=== PATIENT | female | born 1950 | race Caucasian/White ===

== ENCOUNTER 2018-04-10 21:11 | Inpatient (IN) ==
--- NOTE | 2018-04-10 21:54 | Emergency Department Note ---
Disposition Clinical Impression: Salicylate poisoning Disposition: Admitted As Inpatient Condition: Good Referrals: NONE,PCP [Primary Care Provider] - Forms: ED Satisfaction Letter General Adult HPI - General Chief complaint: ED Psychiatric Symptoms Stated complaint: hallucinations Time Seen by Provider: 04/10/18 21:15 Source: patient, EMS Limitations: no limitations Nursing Notes Reviewed: Yes Vital Signs Reviewed: Yes - History of Present Illness HPI Narrative: Female patient presenting to emergency department complaining of hallucinations. 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 She states since then she is also noticed that she has been hallucinating. She reports that the carpet changes s hapes. She is also reporting the sheets on her bed changes shapes as well. And she thought there are frias on them however they are solid blue. Patient states that she is also had a weakness in her lower extremity she complains that this is a dizziness feeling but denies any rotary component. She states that it takes her a long time to walk to the bedroom because she is so weak. She has to hold onto the wall. She does report a history of high blood pressure she has not been taking any medication for around 3 months. She denies any fevers or chills. She denies any urinary symptoms or abdominal pain. She denies any nausea or vomiting. She denies any visual disturbance. She does have a history of high blood pressure however she has not been taking any medications for over 3 months. She denies a headache. She denies any chest pain or shortness of breath. She has no urinary symptoms. States he has been urinating and defecating as normal. No burning or blood in either her urine or stool. No melena. Pain Scale: 4 - Related Data Allergies Allergy/AdvReac Type Severity Reaction Status Date / Time No Known Allergies Allergy Verified 12/27/15 05:25 All systems ED: reviewed and negative except as stated. Review of Systems: As Per HPI Past Medical History - Past Medical History Attestation: Yes The following information was validated with the patient. Source: patient Medical history: Reports: hypertension Psychiatric history: Reports: depression - Social History Smoking Status: Current every day smoker Smokeless Tobacco Status: No Alcohol use: Reports: occasionally Drug use: Reports: none Physical Exam - General Limitations: no limitations General appearance: alert, in no apparent distress - Head Head exam: atraumatic, normocephalic, normal inspection - Eye Eye exam: Present: normal appearance, PERRL, EOMI, nystagmus (LATERAL, NO ROTARY COMPONENT) - ENT ENT exam: normal exam, normal oropharynx, mucous membranes moist - Neck Neck exam: Present: normal inspection, full ROM, trachea midline - Chest Chest inspection: Present: normal inspection, symmetric chest wall rise - Respiratory Respiratory exam: Present: normal lung sounds bilaterally. Absent: respiratory distress, accessory muscle use - Cardiovascular Cardiovascular exam: Present: regular rate, normal rhythm, normal heart sounds - Abdominal Exam Abdominal exam: Present: soft, Non-Tender. Absent: tenderness, distention, guarding, rebound, rigidity, organomegaly - Extremities Exam Extremities exam: Present: normal inspection, full ROM, normal capillary refill, pedal edema (MILD PITTING TO THE ANKLES). Absent: tenderness, calf tenderness - Back Exam Back exam: Present: full ROM, CVA tenderness (R) - Neurological Exam Neurological exam: Present: alert, oriented X3 - Psychiatric Psychiatric exam: Present: normal affect, normal mood - Skin Skin exam: Present: warm, dry, intact, normal color. Absent: rash, cyanosis Course Course Narrative: Patient does have hallucinations. She knows person place and time. She denies headache but does have a weakness and dizziness sensation. She denies vertiginous symptoms such as the world spinning. We did get a basic lab workup and urine tox as well as salicylate and acetaminophen secondary to the hallucinations. Her salicylate level came back elevated at 54.5. On reevaluation of the patient she states that she has been taking 1-2 aspirins every 4 hours for the past 3 months for chronic back pain. She states that her tramadol was stopped so she has been using this. We discussed that this was too habitus. She denies any suicidal ideation with this. She denies any homicidal ideation. Patient's CT of her head showed no signs of acute intracranial hemorrhage. She did have some microvascular changes. I did discuss this patient with toxicology. She is on their list of patients currently. They will be calling back. The recommendations are listed below electron consult. We will start the patient on a bicarbonate drip. The recommendation was for a urine pH above 7.5. Dr. Sibley get her has also been notified of this patient he is with nephrology. He is aware and states if he needs to come in for emergent dialysis he would be able to do that. We did also place a consult for them. We will admit patient to the hospital for her salicylate toxicity. She will need aspirin electrolytes urine pH drawn every 2 hours. She will need every 2 hours aspirin until they are is 2 consecutive aspirin levels less than 30. Dr. Maryjo mccoy her wanted us to be aware that her calcium also needs to be watched as this could decreased. We have also ordered 2 g of mag for her prolonged QTC. Patient does have some mild pitting edema to her lower extremities so we did start the patient on 100 mL bolus is of a full liter. I talked this over with toxicology and they agreed with this plan. We will admit patient to hospital at this time. Patient's back pain does appear to be right flank. I was initially concerned for possible pyelonephritis however the patient's UA was negative. There is no midline tenderness. She states she does have chronic neck and back pain. - Consultations Consultation #1: I spoke with toxicology. They are calling us back however they did recommend 2 g of mag for the prolonged QTC as well as IV fluids at 500 currently. They also recommended trans-of bicarbonate 40 mEq of potassium in a liter of D5 water ran at 2-3 mL/kg an hour. They requested aspirin electrolytes and urine pH be checked every 2 hours. The goal is to keep the urine pH above 7.5. They wanted consecutive aspirins until to come back less than 30. Time: 23:11 Consultation #2: I spoke with Dr. Wasserman her with nephrology. He is agreeable with the plan to start the bicarbonate drip. He states that he will be available if the patient gets worse and needs to have emergent dialysis. He also recommended that we monitor the calcium because sometimes that we will decrease with the bicarbonate drip. Time: 23:11 Vital Signs Temperature 98.2 F 04/10/18 21:16 Pulse Rate 104 04/10/18 21:16 Respiratory Rate 17 04/10/18 21:16 Blood Pressure 122/72 04/10/18 21:16 O2 Sat by Pulse Oximetry 97 04/10/18 21:16 Temperature 98.2 F 04/10/18 21:16 Pulse Rate 104 04/10/18 21:16 Respiratory Rate 17 04/10/18 21:16 Blood Pressure 122/72 04/10/18 21:16 O2 Sat by Pulse Oximetry 97 04/10/18 21:16 Oxygen Delivery Oxygen Delivery Room Air Medical Decision Making - Medical Records Medical records reviewed: Yes I reviewed the patient's medical records. - Lab Data Lab results reviewed: Yes I reviewed the patient's lab results. Result diagrams: 04/10/18 21:56 04/10/18 21:56 Lab Results 04/10/18 04/10/18 04/10/18 Range/Units 21:56 21:56 21:59 WBC 7.2 (4.3-11.1) K/mcL RBC 4.47 (3.82-4.97) M/mcL Hgb 15.2 (11.5-15.4) g/dL Hct 44.8 (35.3-44.9) % MCV 100.2 H (83.0-100.0) fL MCH 34.0 H (28.0-33.3) pg MCHC 33.9 (31.6-35.5) g/dL RDW 12.8 (11.5-14.5) % Plt Count 227 (140-400) K/mcL MPV 9.5 (9.4-12.4) fL Immature Gran % 0.3 (0-4) % Seg Neutrophils % 67.6 % Lymphocytes % 24.9 % Monocytes % 4.6 % Eosinophils % 1.2 % Basophils % 1.4 % Neutrophils # 4.9 (1.6-8.9) K/mcL Lymphocytes # 1.8 (0.6-4.6) K/mcL Monocytes # 0.3 (0.0-1.3) K/mcL Eosinophils # 0.1 (0.0-0.6) K/mcL Basophils # 0.1 (0.0-0.2) K/mcL PT (9.4-12.1) Seconds INR VBG pH (7.32-7.42) pH Units VBG pCO2 (41-51) mmHg VBG pO2 (25-50) mmHg VBG HCO3 (21-27) mEq/L Sodium 133 L (136-145) mEq/L Potassium 3.7 (3.5-5.1) mEq/L Chloride 102 (98-107) mEq/L Carbon Dioxide 15 L (23-29) mEq/L BUN 28 H (8-23) mg/dL Creatinine 1.18 (0.60-1.20) mg/dL Est GFR ( Amer) 55 L (> 60) Est GFR (Non-Af Amer) 45 L (> 60) BUN/Creatinine Ratio 24 (6-26) Glucose 121 H (70-105) mg/dL Calculated Osmolality 283 (280-300) Lactic Acid 0.9 (0.5-2.2) mmol/L Calcium 9.7 (8.6-10.3) mg/dL Magnesium 2.1 (1.6-2.6) mg/dL Total Bilirubin 0.2 L (0.3-1.0) mg/dL Direct Bilirubin 0.1 (0.0-0.2) mg/dL Indirect Bilirubin 0.1 (0.0-1.2) mg/dL AST 35 (13-39) Units/L ALT 30 (7-52) Units/L Alkaline Phosphatase 80 (34-104) Units/L Serum Total Protein 7.3 (6.4-8.9) g/dL Albumin 4.6 (3.5-5.7) g/dL Globulin 2.7 (2.4-3.5) g/dL Albumin/Globulin Ratio 1.7 (1.1-2.2) Urine Color (Yellow) Urine Clarity (Clear) Urine pH (5.0-8.0) pH Units Ur Specific [place] (1.010-1.025) Urine Protein (Neg-Trace) mg/dL Urine Glucose (UA) (Normal) mg/dL Urine Ketones (Negative) mg/dL Urine Blood (Negative) Urine Nitrite (Negative) Urine Bilirubin (Negative) Urine Urobilinogen (Normal) mg/dL Ur Leukocyte Esterase (Negative) Urine Microscopic RBC (0-3) per hpf Urine Microscopic WBC (0-3) per hpf Ur Squamous Epith Cells (None-Few) per lpf Urine Bacteria (None-Few) per hpf Hyaline Casts (None-Few) per lpf Salicylates 54.5 H* (15.0-30.0) mg/dL Urine Opiates Screen (Akjexc=889) ng/mL Acetaminophen < 10 L (10-20) mcg/mL Ur Barbiturates Screen (Ljugie=527) ng/mL Ur Phencyclidine Scrn (Cutoff=25) ng/mL Ur Amphetamines Screen (Gssmlr=7903) ng/mL U Benzodiazepines Scrn (Rozxem=664) ng/mL Urine Cocaine Screen (Cutoff= 300) ng/mL U Marijuana (THC) Screen (Cutoff = 50) ng/mL Ur Drug Screen Interp Ethyl Alcohol < 10 (Less than 10) mg/dL 04/10/18 04/10/18 04/10/18 Range/Units 22:30 22:30 22:40 WBC (4.3-11.1) K/mcL RBC (3.82-4.97) M/mcL Hgb (11.5-15.4) g/dL Hct (35.3-44.9) % MCV (83.0-100.0) fL MCH (28.0-33.3) pg MCHC (31.6-35.5) g/dL RDW (11.5-14.5) % Plt Count (140-400) K/mcL MPV (9.4-12.4) fL Immature Gran % (0-4) % Seg Neutrophils % % Lymphocytes % % Monocytes % % Eosinophils % % Basophils % % Neutrophils # (1.6-8.9) K/mcL Lymphocytes # (0.6-4.6) K/mcL Monocytes # (0.0-1.3) K/mcL Eosinophils # (0.0-0.6) K/mcL Basophils # (0.0-0.2) K/mcL PT 13.6 H (9.4-12.1) Seconds INR 1.2 VBG pH (7.32-7.42) pH Units VBG pCO2 (41-51) mmHg VBG pO2 (25-50) mmHg VBG HCO3 (21-27) mEq/L Sodium (136-145) mEq/L Potassium (3.5-5.1) mEq/L Chloride (98-107) mEq/L Carbon Dioxide (23-29) mEq/L BUN (8-23) mg/dL Creatinine (0.60-1.20) mg/dL Est GFR ( Amer) (> 60) Est GFR (Non-Af Amer) (> 60) BUN/Creatinine Ratio (6-26) Glucose (70-105) mg/dL Calculated Osmolality (280-300) Lactic Acid (0.5-2.2) mmol/L Calcium (8.6-10.3) mg/dL Magnesium (1.6-2.6) mg/dL Total Bilirubin (0.3-1.0) mg/dL Direct Bilirubin (0.0-0.2) mg/dL Indirect Bilirubin (0.0-1.2) mg/dL AST (13-39) Units/L ALT (7-52) Units/L Alkaline Phosphatase (34-104) Units/L Serum Total Protein (6.4-8.9) g/dL Albumin (3.5-5.7) g/dL Globulin (2.4-3.5) g/dL Albumin/Globulin Ratio (1.1-2.2) Urine Color Yellow (Yellow) Urine Clarity Clear (Clear) Urine pH 5.0 (5.0-8.0) pH Units Ur Specific [place] 1.027 H (1.010-1.025) Urine Protein Trace (Neg-Trace) mg/dL Urine Glucose (UA) Normal (Normal) mg/dL Urine Ketones 15 H (Negative) mg/dL Urine Blood Negative (Negative) Urine Nitrite Negative (Negative) Urine Bilirubin Small H (Negative) Urine Urobilinogen Normal (Normal) mg/dL Ur Leukocyte Esterase Negative (Negative) Urine Microscopic RBC 0-3 (0-3) per hpf Urine Microscopic WBC 0-3 (0-3) per hpf Ur Squamous Epith Cells Many H (None-Few) per lpf Urine Bacteria None Seen (None-Few) per hpf Hyaline Casts Few (None-Few) per lpf Salicylates (15.0-30.0) mg/dL Urine Opiates Screen Negative (Rwwjhe=857) ng/mL Acetaminophen (10-20) mcg/mL Ur Barbiturates Screen Negative (Dktbzb=715) ng/mL Ur Phencyclidine Scrn Negative (Cutoff=25) ng/mL Ur Amphetamines Screen Negative (Pmvlmu=4702) ng/mL U Benzodiazepines Scrn Negative (Jcltjb=119) ng/mL Urine Cocaine Screen Negative (Cutoff= 300) ng/mL U Marijuana (THC) Screen Negative (Cutoff = 50) ng/mL Ur Drug Screen Interp See Below Ethyl Alcohol (Less than 10) mg/dL 04/10/18 Range/Units 23:06 WBC (4.3-11.1) K/mcL RBC (3.82-4.97) M/mcL Hgb (11.5-15.4) g/dL Hct (35.3-44.9) % MCV (83.0-100.0) fL MCH (28.0-33.3) pg MCHC (31.6-35.5) g/dL RDW (11.5-14.5) % Plt Count (140-400) K/mcL MPV (9.4-12.4) fL Immature Gran % (0-4) % Seg Neutrophils % % Lymphocytes % % Monocytes % % Eosinophils % % Basophils % % Neutrophils # (1.6-8.9) K/mcL Lymphocytes # (0.6-4.6) K/mcL Monocytes # (0.0-1.3) K/mcL Eosinophils # (0.0-0.6) K/mcL Basophils # (0.0-0.2) K/mcL PT (9.4-12.1) Seconds INR VBG pH 7.37 (7.32-7.42) pH Units VBG pCO2 25 L (41-51) mmHg VBG pO2 85 H (25-50) mmHg VBG HCO3 14 L (21-27) mEq/L Sodium (136-145) mEq/L Potassium (3.5-5.1) mEq/L Chloride (98-107) mEq/L Carbon Dioxide (23-29) mEq/L BUN (8-23) mg/dL Creatinine (0.60-1.20) mg/dL Est GFR ( Amer) (> 60) Est GFR (Non-Af Amer) (> 60) BUN/Creatinine Ratio (6-26) Glucose (70-105) mg/dL Calculated Osmolality (280-300) Lactic Acid (0.5-2.2) mmol/L Calcium (8.6-10.3) mg/dL Magnesium (1.6-2.6) mg/dL Total Bilirubin (0.3-1.0) mg/dL Direct Bilirubin (0.0-0.2) mg/dL Indirect Bilirubin (0.0-1.2) mg/dL AST (13-39) Units/L ALT (7-52) Units/L Alkaline Phosphatase (34-104) Units/L Serum Total Protein (6.4-8.9) g/dL Albumin (3.5-5.7) g/dL Globulin (2.4-3.5) g/dL Albumin/Globulin Ratio (1.1-2.2) Urine Color (Yellow) Urine Clarity (Clear) Urine pH (5.0-8.0) pH Units Ur Specific [place] (1.010-1.025) Urine Protein (Neg-Trace) mg/dL Urine Glucose (UA) (Normal) mg/dL Urine Ketones (Negative) mg/dL Urine Blood (Negative) Urine Nitrite (Negative) Urine Bilirubin (Negative) Urine Urobilinogen (Normal) mg/dL Ur Leukocyte Esterase (Negative) Urine Microscopic RBC (0-3) per hpf Urine Microscopic WBC (0-3) per hpf Ur Squamous Epith Cells (None-Few) per lpf Urine Bacteria (None-Few) per hpf Hyaline Casts (None-Few) per lpf Salicylates (15.0-30.0) mg/dL Urine Opiates Screen (Aqeuif=691) ng/mL Acetaminophen (10-20) mcg/mL Ur Barbiturates Screen (Yaipjg=626) ng/mL Ur Phencyclidine Scrn (Cutoff=25) ng/mL Ur Amphetamines Screen (Erunou=7759) ng/mL U Benzodiazepines Scrn (Wnfosa=738) ng/mL Urine Cocaine Screen (Cutoff= 300) ng/mL U Marijuana (THC) Screen (Cutoff = 50) ng/mL Ur Drug Screen Interp Ethyl Alcohol (Less than 10) mg/dL - Radiology Data Radiology results reviewed: Yes I reviewed the patient's radiology results. Head CT 04/10/18 21:51 IMPRESSION: No acute intracranial abnormality. Chronic white matter microangiopathic ischemic changes. D/ / Martin Young MD / Martin Young MD Interpreting Provider: Martin Young MD Chest X-Ray 04/10/18 22:40 IMPRESSION: Stable exam without acute focal process. D/ / Martin Young MD / Martin Young MD Interpreting Provider: Martin Young MD Attestation Statement - Attestation Attestation: I, Robert Rae, examined this patient and my medical decision-making was reviewed with the PLEATER/PA/Advanced Practice Nurse/Resident Physician. I agree with the documented findings, disposition and treatment plan as described except to the extent set forth below. 67-year-old female presents emergency Department with hallucinations and back pain. Patient states she picked up a heavy object yesterday and now has back pain. Patient has been noticing hallucinations in that V4 has been moving. She feels like floor is unsteady. We obtained medical screening labs for hallucinations which showed elevated salicylate level. There is a 54.5. This is been a chronic salicylate ingestion as she has been taking aspirin every 4 hours for the past 3-4 months. We spoke with the [facility] and the lightning rod erector who agreed with the plan for alkalinization of the urine and possible hemodialysis if she worsens her condition. Patient felt comfortable with this plan of action for admission to hospital.
[2018-04-10 22:10] LABS: Basophils # 0.1 K/mcL (0.0-0.2); Basophils % 1.4 %; Eosinophils # 0.1 K/mcL (0.0-0.6); Eosinophils % 1.2 %; Hematocrit 44.8 % (35.3-44.9); Hemoglobin 15.2 g/dL (11.5-15.4); Immature Granulocytes % 0.3 % (0-4); Lymphocytes # 1.8 K/mcL (0.6-4.6); Lymphocytes % 24.9 %; Mean Corpuscular HGB Conc 33.9 g/dL (31.6-35.5); Mean Corpuscular Volume 100.2 fL (83.0-100.0); Mean Platelet Volume 9.5 fL (9.4-12.4); Monocytes # 0.3 K/mcL (0.0-1.3); Monocytes % 4.6 %; Neutrophils # 4.9 K/mcL (1.6-8.9); Platelet Count 227 K/mcL (140-400); Red Blood Count 4.47 M/mcL (3.82-4.97); Red Cell Distribution Width 12.8 % (11.5-14.5); Segmented Neutrophils % 67.6 %
[2018-04-10 22:36] LABS: Acetaminophen < 10 mcg/mL (10-20); BUN/Creatinine Ratio 24 (6-26); Blood Urea Nitrogen 28 mg/dL (8-23); Calcium 9.7 mg/dL (8.6-10.3); Carbon Dioxide 15 mEq/L (23-29); Chloride 102 mEq/L (98-107); Ethanol < 10 mg/dL (Less than 10); Glucose 121 mg/dL (70-105); Osmolality,Calculated 283 (280-300); Potassium 3.7 mEq/L (3.5-5.1); Salicylate 54.5 mg/dL (15.0-30.0); Sodium 133 mEq/L (136-145); eGFR For Non-African Americans 45 (> 60)
[2018-04-10] MEDS ORDERED: 0.9 % Sodium Chloride 500 ML IVC ONE (22:40)
[2018-04-10 22:46] LABS: Bilirubin,Urine Small (Negative); Blood,Urine Negative (Negative); Clarity,Urine Clear (Clear); Color,Urine Yellow (Yellow); Glucose,Urine (UA) Normal (Normal); Ketones,Urine 15 mg/dL (Negative); Leukocyte Esterase,Urine Negative (Negative); Nitrite,Urine Negative (Negative); Protein,Urine Trace mg/dL (Neg-Trace); Specific Gravity,Urine 1.027 (1.010-1.025); Urobilinogen,Urine Normal (Normal)
[2018-04-10 22:48] LABS: Bacteria,Urine None Seen per hpf (None-Few); Hyaline Casts,Urine Few per lpf (None-Few); RBC,Urine 0-3 per hpf (0-3); Squamous Epithelial Cell,Urine Many per lpf (None-Few); WBC,Urine 0-3 per hpf (0-3)
[2018-04-10 22:56] LABS: Amphetamine Screen,Urine Negative ng/mL (Cutoff=1000); Barbiturate Screen,Urine Negative ng/mL (Cutoff=200); Benzodiazepines Screen,Urine Negative ng/mL (Cutoff=200); Cannabinoid Screen,Urine Negative ng/mL (Cutoff = 50); Cocaine Screen,Urine Negative ng/mL (Cutoff= 300); Opiate Screen,Urine Negative ng/mL (Cutoff=300); Phencyclidine Screen,Urine Negative ng/mL (Cutoff=25)
[2018-04-10 23:04] LABS: INR 1.2; Prothrombin Time 13.6 Seconds (9.4-12.1)
[2018-04-10] MEDS ORDERED: Potassium Chloride 40 MEQ, Sodium Bicarbonate 150 MEQ in D5% in Water 1,000 ML IVC ONE (23:07)
[2018-04-10 23:09] LABS: VBG HCO3 14 mEq/L (21-27); VBG PCO2 25 mmHg (41-51); VBG PH 7.37 pH Units (7.32-7.42); VBG PO2 85 mmHg (25-50)
[2018-04-10 23:11] LABS: Alanine Aminotransferase 30 Units/L (7-52); Albumin 4.6 g/dL (3.5-5.7); Albumin/Globulin Ratio 1.7 (1.1-2.2); Alkaline Phosphatase 80 Units/L (34-104); Aspartate Amino Transferase 35 Units/L (13-39); Bilirubin,Direct 0.1 mg/dL (0.0-0.2); Bilirubin,Indirect 0.1 mg/dL (0.0-1.2); Bilirubin,Total 0.2 mg/dL (0.3-1.0); Globulin 2.7 g/dL (2.4-3.5); Magnesium 2.1 mg/dL (1.6-2.6); Total Protein 7.3 g/dL (6.4-8.9)
--- NOTE | 2018-04-11 00:05 | Emergency Department Note ---
Addendum entered and electronically signed by Eladio Arredondo DO 04/14/18 16:59: Addendum entered and electronically signed by Robert Rae DO 04/14/18 16:03: Pt signed out to Dr. Arredondo and Dr. Mensah pending re-evaluation and disposition Original Note: Disposition Clinical Impression: Salicylate poisoning Qualifiers: Encounter type: initial encounter Injury intent: undetermined intent Qualified Code(s): T39.094A - Poisoning by salicylates, undetermined, initial encounter Disposition: Admitted As Inpatient Condition: Good Referrals: NONE,PCP [Primary Care Provider] - Forms: ED Satisfaction Letter Time of Disposition: 00:06 General Adult HPI - General Chief complaint: ED Psychiatric Symptoms Stated complaint: hallucinations Time Seen by Provider: 04/10/18 21:15 Source: patient, EMS Limitations: no limitations - History of Present Illness Pain Scale: 4 - Related Data Allergies Allergy/AdvReac Type Severity Reaction Status Date / Time No Known Allergies Allergy Verified 12/27/15 05:25 Past Medical History - Past Medical History Medical history: Reports: hypertension Psychiatric history: Reports: depression - Social History Smoking Status: Current every day smoker Smokeless Tobacco Status: No Alcohol use: Reports: occasionally Drug use: Reports: none Physical Exam - General Limitations: no limitations General appearance: alert, in no apparent distress Course Vital Signs Temperature 98.2 F 04/10/18 21:16 Pulse Rate 104 04/10/18 21:16 Respiratory Rate 17 04/10/18 21:16 Blood Pressure 122/72 04/10/18 21:16 O2 Sat by Pulse Oximetry 97 04/10/18 21:16 Temperature 98.2 F 04/10/18 21:16 Pulse Rate 93 04/10/18 23:28 Respiratory Rate 20 04/10/18 23:28 Blood Pressure 123/60 04/10/18 23:28 O2 Sat by Pulse Oximetry 99 04/10/18 23:28 Oxygen Delivery Oxygen Delivery Room Air Medical Decision Making - [facility] Narrative Medical decision making narrative: Refer to previous notes for history of present illness, review of systems, physical exam, medical decision-making regarding the care of this patient. This is a signout was given to me for hospital admission. 67-year-old female who has been taken aspirin chronically for lower back pain presents with hallucinations that her visual in nature. Patient alert and oriented to person, place, time. Salicylate level was elevated in the 50s. Nephrology was consulted. Toxicology was consulted as well. Patient admitted to the hospitalist, Dr. Gutierrez. Patient currently receiving urine alkalinization treatment. Pending current labs. PH of the urine, repeat BMP, repeat salicylate level were obtained. Patient not having any acute changes at this time. I have added an ammonia level. This is to be followed up on in patient. Patient's hemodynamics are stable. Patient has no homicidal ideations or suicidal ideations and is not reported them. After looking at previous visits, patient has been in the emergency department for psychiatric evaluation in the past. Would recommend looking into this more while patient is in the hospital. Vital Signs Temperature 98.2 F 04/10/18 21:16 Pulse Rate 104 04/10/18 21:16 Respiratory Rate 17 04/10/18 21:16 Blood Pressure 122/72 04/10/18 21:16 O2 Sat by Pulse Oximetry 97 04/10/18 21:16 Temperature 98.2 F 04/10/18 21:16 Pulse Rate 93 04/10/18 23:28 Respiratory Rate 20 04/10/18 23:28 Blood Pressure 123/60 04/10/18 23:28 O2 Sat by Pulse Oximetry 99 04/10/18 23:28 Oxygen Delivery Oxygen Delivery Room Air - Lab Data Result diagrams: 04/10/18 21:56 04/11/18 00:02 Lab Results 04/10/18 04/10/18 04/10/18 Range/Units 21:56 21:56 21:59 WBC 7.2 (4.3-11.1) K/mcL RBC 4.47 (3.82-4.97) M/mcL Hgb 15.2 (11.5-15.4) g/dL Hct 44.8 (35.3-44.9) % MCV 100.2 H (83.0-100.0) fL MCH 34.0 H (28.0-33.3) pg MCHC 33.9 (31.6-35.5) g/dL RDW 12.8 (11.5-14.5) % Plt Count 227 (140-400) K/mcL MPV 9.5 (9.4-12.4) fL Immature Gran % 0.3 (0-4) % Seg Neutrophils % 67.6 % Lymphocytes % 24.9 % Monocytes % 4.6 % Eosinophils % 1.2 % Basophils % 1.4 % Neutrophils # 4.9 (1.6-8.9) K/mcL Lymphocytes # 1.8 (0.6-4.6) K/mcL Monocytes # 0.3 (0.0-1.3) K/mcL Eosinophils # 0.1 (0.0-0.6) K/mcL Basophils # 0.1 (0.0-0.2) K/mcL PT (9.4-12.1) Seconds INR VBG pH (7.32-7.42) pH Units VBG pCO2 (41-51) mmHg VBG pO2 (25-50) mmHg VBG HCO3 (21-27) mEq/L Sodium 133 L (136-145) mEq/L Potassium 3.7 (3.5-5.1) mEq/L Chloride 102 (98-107) mEq/L Carbon Dioxide 15 L (23-29) mEq/L BUN 28 H (8-23) mg/dL Creatinine 1.18 (0.60-1.20) mg/dL Est GFR ( Amer) 55 L (> 60) Est GFR (Non-Af Amer) 45 L (> 60) BUN/Creatinine Ratio 24 (6-26) Glucose 121 H (70-105) mg/dL POC Glucose (70-99) mg/dL Calculated Osmolality 283 (280-300) Lactic Acid 0.9 (0.5-2.2) mmol/L Calcium 9.7 (8.6-10.3) mg/dL Magnesium 2.1 (1.6-2.6) mg/dL Total Bilirubin 0.2 L (0.3-1.0) mg/dL Direct Bilirubin 0.1 (0.0-0.2) mg/dL Indirect Bilirubin 0.1 (0.0-1.2) mg/dL AST 35 (13-39) Units/L ALT 30 (7-52) Units/L Alkaline Phosphatase 80 (34-104) Units/L Serum Total Protein 7.3 (6.4-8.9) g/dL Albumin 4.6 (3.5-5.7) g/dL Globulin 2.7 (2.4-3.5) g/dL Albumin/Globulin Ratio 1.7 (1.1-2.2) Urine Color (Yellow) Urine Clarity (Clear) Urine pH (5.0-8.0) pH Units Ur Specific [place] (1.010-1.025) Urine Protein (Neg-Trace) mg/dL Urine Glucose (UA) (Normal) mg/dL Urine Ketones (Negative) mg/dL Urine Blood (Negative) Urine Nitrite (Negative) Urine Bilirubin (Negative) Urine Urobilinogen (Normal) mg/dL Ur Leukocyte Esterase (Negative) Urine Microscopic RBC (0-3) per hpf Urine Microscopic WBC (0-3) per hpf Ur Squamous Epith Cells (None-Few) per lpf Urine Bacteria (None-Few) per hpf Hyaline Casts (None-Few) per lpf Salicylates 54.5 H* (15.0-30.0) mg/dL Urine Opiates Screen (Eytlfc=756) ng/mL Acetaminophen < 10 L (10-20) mcg/mL Ur Barbiturates Screen (Zxhsua=447) ng/mL Ur Phencyclidine Scrn (Cutoff=25) ng/mL Ur Amphetamines Screen (Cqcpsd=5405) ng/mL U Benzodiazepines Scrn (Hykrmp=114) ng/mL Urine Cocaine Screen (Cutoff= 300) ng/mL U Marijuana (THC) Screen (Cutoff = 50) ng/mL Ur Drug Screen Interp Ethyl Alcohol < 10 (Less than 10) mg/dL 04/10/18 04/10/18 04/10/18 Range/Units 22:30 22:30 22:40 WBC (4.3-11.1) K/mcL RBC (3.82-4.97) M/mcL Hgb (11.5-15.4) g/dL Hct (35.3-44.9) % MCV (83.0-100.0) fL MCH (28.0-33.3) pg MCHC (31.6-35.5) g/dL RDW (11.5-14.5) % Plt Count (140-400) K/mcL MPV (9.4-12.4) fL Immature Gran % (0-4) % Seg Neutrophils % % Lymphocytes % % Monocytes % % Eosinophils % % Basophils % % Neutrophils # (1.6-8.9) K/mcL Lymphocytes # (0.6-4.6) K/mcL Monocytes # (0.0-1.3) K/mcL Eosinophils # (0.0-0.6) K/mcL Basophils # (0.0-0.2) K/mcL PT 13.6 H (9.4-12.1) Seconds INR 1.2 VBG pH (7.32-7.42) pH Units VBG pCO2 (41-51) mmHg VBG pO2 (25-50) mmHg VBG HCO3 (21-27) mEq/L Sodium (136-145) mEq/L Potassium (3.5-5.1) mEq/L Chloride (98-107) mEq/L Carbon Dioxide (23-29) mEq/L BUN (8-23) mg/dL Creatinine (0.60-1.20) mg/dL Est GFR ( Amer) (> 60) Est GFR (Non-Af Amer) (> 60) BUN/Creatinine Ratio (6-26) Glucose (70-105) mg/dL POC Glucose (70-99) mg/dL Calculated Osmolality (280-300) Lactic Acid (0.5-2.2) mmol/L Calcium (8.6-10.3) mg/dL Magnesium (1.6-2.6) mg/dL Total Bilirubin (0.3-1.0) mg/dL Direct Bilirubin (0.0-0.2) mg/dL Indirect Bilirubin (0.0-1.2) mg/dL AST (13-39) Units/L ALT (7-52) Units/L Alkaline Phosphatase (34-104) Units/L Serum Total Protein (6.4-8.9) g/dL Albumin (3.5-5.7) g/dL Globulin (2.4-3.5) g/dL Albumin/Globulin Ratio (1.1-2.2) Urine Color Yellow (Yellow) Urine Clarity Clear (Clear) Urine pH 5.0 (5.0-8.0) pH Units Ur Specific [place] 1.027 H (1.010-1.025) Urine Protein Trace (Neg-Trace) mg/dL Urine Glucose (UA) Normal (Normal) mg/dL Urine Ketones 15 H (Negative) mg/dL Urine Blood Negative (Negative) Urine Nitrite Negative (Negative) Urine Bilirubin Small H (Negative) Urine Urobilinogen Normal (Normal) mg/dL Ur Leukocyte Esterase Negative (Negative) Urine Microscopic RBC 0-3 (0-3) per hpf Urine Microscopic WBC 0-3 (0-3) per hpf Ur Squamous Epith Cells Many H (None-Few) per lpf Urine Bacteria None Seen (None-Few) per hpf Hyaline Casts Few (None-Few) per lpf Salicylates (15.0-30.0) mg/dL Urine Opiates Screen Negative (Jljoxn=761) ng/mL Acetaminophen (10-20) mcg/mL Ur Barbiturates Screen Negative (Jjyyhn=738) ng/mL Ur Phencyclidine Scrn Negative (Cutoff=25) ng/mL Ur Amphetamines Screen Negative (Hcthza=4520) ng/mL U Benzodiazepines Scrn Negative (Bycqsp=175) ng/mL Urine Cocaine Screen Negative (Cutoff= 300) ng/mL U Marijuana (THC) Screen Negative (Cutoff = 50) ng/mL Ur Drug Screen Interp See Below Ethyl Alcohol (Less than 10) mg/dL 04/10/18 04/10/18 Range/Units 23:06 23:45 WBC (4.3-11.1) K/mcL RBC (3.82-4.97) M/mcL Hgb (11.5-15.4) g/dL Hct (35.3-44.9) % MCV (83.0-100.0) fL MCH (28.0-33.3) pg MCHC (31.6-35.5) g/dL RDW (11.5-14.5) % Plt Count (140-400) K/mcL MPV (9.4-12.4) fL Immature Gran % (0-4) % Seg Neutrophils % % Lymphocytes % % Monocytes % % Eosinophils % % Basophils % % Neutrophils # (1.6-8.9) K/mcL Lymphocytes # (0.6-4.6) K/mcL Monocytes # (0.0-1.3) K/mcL Eosinophils # (0.0-0.6) K/mcL Basophils # (0.0-0.2) K/mcL PT (9.4-12.1) Seconds INR VBG pH 7.37 (7.32-7.42) pH Units VBG pCO2 25 L (41-51) mmHg VBG pO2 85 H (25-50) mmHg VBG HCO3 14 L (21-27) mEq/L Sodium (136-145) mEq/L Potassium (3.5-5.1) mEq/L Chloride (98-107) mEq/L Carbon Dioxide (23-29) mEq/L BUN (8-23) mg/dL Creatinine (0.60-1.20) mg/dL Est GFR ( Amer) (> 60) Est GFR (Non-Af Amer) (> 60) BUN/Creatinine Ratio (6-26) Glucose (70-105) mg/dL POC Glucose 100 H (70-99) mg/dL Calculated Osmolality (280-300) Lactic Acid (0.5-2.2) mmol/L Calcium (8.6-10.3) mg/dL Magnesium (1.6-2.6) mg/dL Total Bilirubin (0.3-1.0) mg/dL Direct Bilirubin (0.0-0.2) mg/dL Indirect Bilirubin (0.0-1.2) mg/dL AST (13-39) Units/L ALT (7-52) Units/L Alkaline Phosphatase (34-104) Units/L Serum Total Protein (6.4-8.9) g/dL Albumin (3.5-5.7) g/dL Globulin (2.4-3.5) g/dL Albumin/Globulin Ratio (1.1-2.2) Urine Color (Yellow) Urine Clarity (Clear) Urine pH (5.0-8.0) pH Units Ur Specific [place] (1.010-1.025) Urine Protein (Neg-Trace) mg/dL Urine Glucose (UA) (Normal) mg/dL Urine Ketones (Negative) mg/dL Urine Blood (Negative) Urine Nitrite (Negative) Urine Bilirubin (Negative) Urine Urobilinogen (Normal) mg/dL Ur Leukocyte Esterase (Negative) Urine Microscopic RBC (0-3) per hpf Urine Microscopic WBC (0-3) per hpf Ur Squamous Epith Cells (None-Few) per lpf Urine Bacteria (None-Few) per hpf Hyaline Casts (None-Few) per lpf Salicylates (15.0-30.0) mg/dL Urine Opiates Screen (Tbtzqr=802) ng/mL Acetaminophen (10-20) mcg/mL Ur Barbiturates Screen (Gggaoa=929) ng/mL Ur Phencyclidine Scrn (Cutoff=25) ng/mL Ur Amphetamines Screen (Kamsim=5188) ng/mL U Benzodiazepines Scrn (Jncigw=854) ng/mL Urine Cocaine Screen (Cutoff= 300) ng/mL U Marijuana (THC) Screen (Cutoff = 50) ng/mL Ur Drug Screen Interp Ethyl Alcohol (Less than 10) mg/dL Attestation Statement - Attestation Attestation: I, Ethan Mensah MD, personally evaluated this patient and discussed their management with the resident physician. I reviewed the resident's note and agree with the documented findings, medical decision making, and plan of care. This patient was signed out at shift change from Dr. Carvalho and Dr. Robert Rae. Patient awaiting final labs before consulted the hospitalist for admission. H&H and had an episode of weakness of her left leg which just started while here in the emergency department and a stroke alert was called. She had already had a head CT which is negative. The symptoms only lasted a few minutes and then totally resolved so the stroke alert was canceled. Patient is alert but obv iously hallucinating and telling me about watching the Lasix and the wallpaper float. On examination patient is a well-developed and nourished elderly female in no acute distress. She is alert. Breath sounds are clear and equal bilaterally. Heart regular rate and rhythm. The hospitalist, Dr. Gutierrez, was consulted and accepted admission of the patient.
--- NOTE | 2018-04-11 00:13 | Internal Med History&Physical ---
<Yaa Hornechristian - Last Filed: 04/11/18 03:46> Internal Medicine - H&P: Meds Allergy/AdvReac Type Severity Reaction Status Date / Time Penicillins Allergy Hives Verified 04/11/18 05:43 All Systems PM: A 10-system review of systems was performed and is negative for pertinent findings except as documented above in the HPI. - Constitutional Vitals: Temp Pulse Resp BP Pulse Ox 98.2 F 93 20 123/60 99 04/10/18 21:16 04/10/18 23:28 04/10/18 23:28 04/10/18 23:28 04/10/18 23:28 Internal Med - H&P Results - Labs CBC & Chem 7: 04/10/18 21:56 04/11/18 00:02 Labs: Short CBC 04/10/18 Range/Units 21:56 WBC 7.2 (4.3-11.1) K/mcL Hgb 15.2 (11.5-15.4) g/dL Hct 44.8 (35.3-44.9) % Plt Count 227 (140-400) K/mcL Neutrophils # 4.9 (1.6-8.9) K/mcL BMP 04/10/18 04/11/18 21:56 00:02 Sodium 133 L 135 L Potassium 3.7 3.7 Chloride 102 107 Carbon Dioxide 15 L 17 L BUN 28 H 27 H Creatinine 1.18 1.08 Glucose 121 H 91 Calcium 9.7 8.6 Liver Function 04/10/18 Range/Units 21:56 Total Bilirubin 0.2 L (0.3-1.0) mg/dL Direct Bilirubin 0.1 (0.0-0.2) mg/dL AST 35 (13-39) Units/L ALT 30 (7-52) Units/L Alkaline Phosphatase 80 (34-104) Units/L Albumin 4.6 (3.5-5.7) g/dL Urine 04/10/18 Range/Units 22:30 Urine Color Yellow (Yellow) Urine Clarity Clear (Clear) Urine pH 5.0 (5.0-8.0) pH Units Ur Specific [place] 1.027 H (1.010-1.025) Urine Protein Trace (Neg-Trace) mg/dL Urine Glucose (UA) Normal (Normal) mg/dL - ABG Interpretation ABG results: 04/10/18 23:06 VBG pH 7.37 VBG pCO2 25 L VBG pO2 85 H VBG HCO3 14 L - Impressions ITS Impressions Head CT 04/10/18 21:51 IMPRESSION: No acute intracranial abnormality. Chronic white matter microangiopathic ischemic changes. D/ / Martin Young MD / Martin Young MD Interpreting Provider: Martin Young MD Chest X-Ray 04/10/18 22:40 IMPRESSION: Stable exam without acute focal process. D/ / Martin Young MD / Martin Young MD Interpreting Provider: Martin Young MD - Assessment and plan (1) Salicylate poisoning Current Visit: Yes Status: Acute Qualifiers: Encounter type: initial encounter Injury intent: undetermined intent Qualified Code(s): T39.094A - Poisoning by salicylates, undetermined, initial encounter (2) DVT prophylaxis Current Visit: Yes Status: Acute - Time Spent With Patient Total time spent is greater than 50% in coordination of care (as documented) at patient's floor/unit and/or counseling patient: - Attending Attestation Nieves Liu is a 67 year old woman with a history of hypertension and depression who comes in with the complaint of feeling unwell and having visual hallucinations. Her story was somewhat conflicting to me with flight of ideas and wandering off in tangents so the bulk of info is obtained from chart review. She admitted to taking aspirin daily and was found to have a salicylate level of 54.5. She has been started on bicarbonate infusion as recommended by toxicology and nephrology. Rest of her labs are grossly unremarkable. PMHx: As above. SHx: Denies illicit drug use. FHx: Reviewed and found to be noncontributory. Review of systems: All systems reviewed and negative except as listed above in the HPI. Physical exam remarkable for well-developed white female, right-sided deviation of her body, moist mucous membranes with notable conjunctivae pallor, supple neck with no lymphadenopathy, chest clear to auscultation bilaterally with no wheezes, rales or rhonchi, normal S1-S, abdomen non-distended, soft and not tender to palpation, left leg appears slightly larger than the right and both legs appear to have changes of venous stasis bilaterally, no focal deficits and awake/oriented 3, affect appropriate. Labs and CT scan reviewed as noted. We will admit as inpatient for symptomatic salicylate toxicity. We will continue bicarbonate drip and monitor electrolytes. We will need to keep her potassium level around 4 and equally ensure her glucose stays up. Check urine pH and electrolytes every 2 hours as well as salicylate level. Goal urine pH is 7.5-8. We shall consult nephrology for follow-up care in the morning. She may also benefit from psychiatric evaluation given her history. DVT prophylaxis. Patient seen and examined by me on 04/11/18. MELANIE DAVIS. <Mikala Mdeina N - Last Filed: 04/11/18 09:37> Date of Encounter: 04/11/18 Time of Encounter: 00:13 Internal Medicine - H&P: HPI Chief complaint: Hallucinations Admitted From: Home History of present illness: Ms. Liu is a 67 year old female with a history of hypertension, migraines, depression, and vertebral artery insufficiency. She presented to the ED complaining of visual hallucinations, describing them as "care home between the X-files and a [employer] skit". She states that she "still feels like I'm kind of like me, but not anymore". She is unable to articulate when her symptoms began. She reports worsening stiffness and weakness of the extremities, for which she has been taking aspirin. She reports pain in her neck and lumbar spine with sciatic in her right lower extremity. Further elaboration of HPI was unobtainable secondary to flight of ideas and tangential thinking. Patient was seen and evaluated at the bedside. At this time she denies any acute complaints or concerns and repeatedly requests food. Nursing staff denies any acute concerns at this time. Past Med Surg Social Fam HX - Past Medical History Medical history: hypertension Psychiatric history: depression - Past Surgical History Additional surgical history: neck et back sx. left eye lens - Social History Smoking Status: Current every day smoker Smokeless Tobacco Status: No Alcohol use: occasionally Drug use: none All Systems PM: A 10-system review of systems was performed and is negative for pertinent findings except as documented above in the HPI. - Constitutional Vitals: Temp Pulse Resp BP Pulse Ox 98.2 F 93 20 123/60 99 04/10/18 21:16 04/10/18 23:28 04/10/18 23:28 04/10/18 23:28 04/10/18 23:28 Exam: GENERAL: Pleasant, ill-appearing female and no acute distress. She is c ooperative with exam. Thought process is intermittently illogical. Patient appears to lose track of train of thought at times. HEENT: Atraumatic and normocephalic. CARDIOVASCULAR: Regular rate and rhythm. S1 and S2 present. No murmurs, gallops, or rubs. RESPIRATORY: CTA bilaterally. No accessory muscle use or tachypnea noted. GASTROINTESTINAL: Active bowel sounds x 4 quadrants. Abdomen is soft, nontender, and nondistended. EXTREMITIES: No clubbing, cyanosis, or edema. Internal Med - H&P Results - Labs CBC & Chem 7: 04/10/18 21:56 04/11/18 08:07 Labs: Short CBC 04/10/18 Range/Units 21:56 WBC 7.2 (4.3-11.1) K/mcL Hgb 15.2 (11.5-15.4) g/dL Hct 44.8 (35.3-44.9) % Plt Count 227 (140-400) K/mcL Neutrophils # 4.9 (1.6-8.9) K/mcL BMP 04/10/18 21:56 Sodium 133 L Potassium 3.7 Chloride 102 Carbon Dioxide 15 L BUN 28 H Creatinine 1.18 Glucose 121 H Calcium 9.7 Liver Function 04/10/18 Range/Units 21:56 Total Bilirubin 0.2 L (0.3-1.0) mg/dL Direct Bilirubin 0.1 (0.0-0.2) mg/dL AST 35 (13-39) Units/L ALT 30 (7-52) Units/L Alkaline Phosphatase 80 (34-104) Units/L Albumin 4.6 (3.5-5.7) g/dL Urine 04/10/18 Range/Units 22:30 Urine Color Yellow (Yellow) Urine Clarity Clear (Clear) Urine pH 5.0 (5.0-8.0) pH Units Ur Specific [place] 1.027 H (1.010-1.025) Urine Protein Trace (Neg-Trace) mg/dL Urine Glucose (UA) Normal (Normal) mg/dL - ABG Interpretation ABG results: 04/10/18 23:06 VBG pH 7.37 VBG pCO2 25 L VBG pO2 85 H VBG HCO3 14 L - Impressions ITS Impressions Head CT 04/10/18 21:51 IMPRESSION: No acute intracranial abnormality. Chronic white matter microangiopathic ischemic changes. D/ / Martin Young MD / Martin Young MD Interpreting Provider: Martin Young MD Chest X-Ray 04/10/18 22:40 IMPRESSION: Stable exam without acute focal process. D/ / Martin Young MD / Martin Young MD Interpreting Provider: Martin Young MD - Assessment and plan (1) Salicylate poisoning Current Visit: Yes Status: Acute Assessment and plan: Per ED documentation, patient has reportedly been taking aspirin as frequently as every 4 hours for back pain/stiffness. Initial salicylate level was found to be 54.5. EKG demonstrated QTc prolongation, for which patient was given 2g magnesium. Repeat EKG demonstrated persistent QTc prolongation, but no acute changes. - Bicarbonate gtt to alkalinize urine with goal urine pH >7.5 - Serial laboratory studies Q2H - BMP, urine pH, salicylate level - Nephrology consult placed by ED, with evaluation pending - Serial vital signs with watch on respiratory status - Serum osmolality pending - Maintain adequate serum glucose and potassium levels Qualifiers: Qualified Code(s): T39.094A - Poisoning by salicylates, undetermined, initial encounter (2) Altered mental status Current Visit: Yes Status: Acute Assessment and plan: Patient presented with visual hallucinations that have been present for an indeterminate amount of time. On evaluation, patient is tangential and frequently loses her train of thought and/or answers questions that were not asked. Unclear if this is fully due to salicylate toxicity or if there is an underlying chronic mental status change. She does report some depression and expresses interest in seeing a psychiatrist and/or counselor for help. - Treatment and expectant management of salicylate toxicity - Psychiatry evaluation after resolution of acute toxicity - Patient would likely benefit from outpatient counseling (3) DVT prophylaxis Current Visit: Yes Status: Acute Assessment and plan: - Heparin 5000units Q8H - Time Spent With Patient Total time spent is greater than 50% in coordination of care (as documented) at patient's floor/unit and/or counseling patient:
[2018-04-11 00:30] LABS: BUN/Creatinine Ratio 25 (6-26); Blood Urea Nitrogen 27 mg/dL (8-23); Calcium 8.6 mg/dL (8.6-10.3); Carbon Dioxide 17 mEq/L (23-29); Chloride 107 mEq/L (98-107); Glucose 91 mg/dL (70-105); Osmolality,Calculated 285 (280-300); Potassium 3.7 mEq/L (3.5-5.1); Salicylate 43.9 mg/dL (15.0-30.0); Sodium 135 mEq/L (136-145); eGFR For Non-African Americans 50 (> 60)
[2018-04-11] MEDS ORDERED: Nicotine 14 MG PATCH.TD24 TD SCH (03:15)
[2018-04-11 04:16] LABS: ABG Base Excess -7 mEq/L (-2 to 3); ABG HCO3 15 mEq/L (21-27); ABG Oxygen Saturation 97 % (95-98); ABG PCO2 21 mmHg (35-45); ABG PH 7.47 pH Units (7.32-7.45); ABG PO2 84 mmHg (85-104); ABG TCO2 16 mEq/L (20-26)
[2018-04-11 04:37] LABS: BUN/Creatinine Ratio 24 (6-26); Blood Urea Nitrogen 23 mg/dL (8-23); Calcium 8.6 mg/dL (8.6-10.3); Carbon Dioxide 14 mEq/L (23-29); Chloride 109 mEq/L (98-107); Glucose 106 mg/dL (70-105); Osmolality,Calculated 286 (280-300); Potassium 3.6 mEq/L (3.5-5.1); Salicylate 42.5 mg/dL (15.0-30.0); Sodium 136 mEq/L (136-145); eGFR For Non-African Americans 58 (> 60)
[2018-04-11 05:28] LABS: BUN/Creatinine Ratio 26 (6-26); Blood Urea Nitrogen 24 mg/dL (8-23); Calcium 8.6 mg/dL (8.6-10.3); Carbon Dioxide 20 mEq/L (23-29); Chloride 106 mEq/L (98-107); Glucose 100 mg/dL (70-105); Osmolality,Calculated 288 (280-300); Potassium 3.4 mEq/L (3.5-5.1); Salicylate 41.7 mg/dL (15.0-30.0); Sodium 137 mEq/L (136-145); eGFR For Non-African Americans > 60 (> 60)
[2018-04-11] MEDS: *HR* Heparin 5,000 UNIT/ML VIAL SQ SCH ×3 (05:50→20:55)
[2018-04-11 06:47] LABS: BUN/Creatinine Ratio 25 (6-26); Blood Urea Nitrogen 23 mg/dL (8-23); Calcium 8.5 mg/dL (8.6-10.3); Carbon Dioxide 20 mEq/L (23-29); Chloride 109 mEq/L (98-107); Glucose 159 mg/dL (70-105); Osmolality,Calculated 293 (280-300); Potassium 3.4 mEq/L (3.5-5.1); Salicylate 39.3 mg/dL (15.0-30.0); Sodium 138 mEq/L (136-145); eGFR For Non-African Americans > 60 (> 60)
[2018-04-11 08:44] LABS: BUN/Creatinine Ratio 25 (6-26); Blood Urea Nitrogen 25 mg/dL (8-23); Calcium 8.8 mg/dL (8.6-10.3); Carbon Dioxide 25 mEq/L (23-29); Chloride 107 mEq/L (98-107); Glucose 88 mg/dL (70-105); Osmolality,Calculated 292 (280-300); Potassium 3.7 mEq/L (3.5-5.1); Salicylate 37.9 mg/dL (15.0-30.0); Sodium 139 mEq/L (136-145); eGFR For Non-African Americans 55 (> 60)
[2018-04-11] MEDS: Potassium Chloride Elixir 20 MEQ/15 ML UDC PO SCH ×2 (08:57→20:55)
--- NOTE | 2018-04-11 09:21 | Internal Med Progress Note ---
<No Newby - Last Filed: 04/11/18 14:52> Hospitalist Progress Note - Encounter Date of Encounter: 04/11/18 Time of Encounter: 09:14 - Subjective Interval History: 67F with PMH tobacco abuse presenting for visual hallucinations and "stiffness" admitted with high salicylate levels, metabolic acidosis. Measured Osm 287, Calculated Osm 283, Osm Gap at admit 4 - Normal Osm gap. BUN 28 yesterday, 25 this am. Salicylate Q2 checks with Urine pH >7.5 Q2 checks. Nephro on board, bicarb drip, check calcium as this can decrease during treatment. Ca stable today 8.6-8.7 Q2 checks. Poison control recommending dialysis due to AMS and hallucinations. Pt complaining of seeing "little bugs" in her room on exam. Will address need for pain management, PT/OT, seasonal allergies once salicylate level normal and metabolic alkalosis resolved. - Exam Vitals: Temp Pulse Resp BP Pulse Ox 97.9 F 79 16 105/62 99 04/11/18 07:20 04/11/18 07:20 04/11/18 07:20 04/11/18 07:20 04/11/18 07:20 Exam: General:. Kyphotic posture, seems relatively at ease Head: atraumatic, normocephalic. ENT: No conjunctival injection, no scleral icterus. PERRLA. EOMI. Oropharynx non- erythematous. mucous membranes moist. Neuro: No focal deficits, no speech deficit, no facial droop. Pulm: Lungs CTAB A/P. No wheezes, rales, ronchi. Cardio: RRR no m/r/g. Chest not tender to palpation. Abd: Soft, non-distended. Normoactive bowel sounds. Non-tender to palpation. No guarding. Non rigid. Skin: warm, dry, intact. No rashes. Psych: Cooperative with exam. Complaining of bugs in the room, somewhat pressured speech, easily distractable but can be redirected. 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 See salicylate toxicity for plan. (3) Hypertension Current Visit: Yes Status: Resolved Assessment and Plan: Vitals have been stable - 126/65 at 11:55, 105/62 at 0720 today. (4) Metabolic acidosis due to salicylate Current Visit: Yes Status: Acute Assessment and Plan: -Bicarb drip - dialysis - nephrology on board -continue to monitor (5) DVT prophylaxis Current Visit: Yes Status: Acute Assessment and Plan: heparin 5000 u Q8 DVT Prophylaxis: heparin 5000u Q8 - Time Spent with Patient Total time spent is greater than 50% in coordination of care (as documented) at patient's floor/unit and/or counseling patient: less than 15 minutes Plan of Care Discussed with: patient Internal Medicine: Result - Labs CBC & Chem 7: 04/10/18 21:56 04/11/18 12:11 Labs: Short CBC 04/10/18 Range/Units 21:56 WBC 7.2 (4.3-11.1) K/mcL Hgb 15.2 (11.5-15.4) g/dL Hct 44.8 (35.3-44.9) % Plt Count 227 (140-400) K/mcL Neutrophils # 4.9 (1.6-8.9) K/mcL BMP 04/10/18 04/11/18 04/11/18 21:56 00:02 03:32 Sodium 133 L 135 L 136 Potassium 3.7 3.7 3.6 Chloride 102 107 109 H Carbon Dioxide 15 L 17 L 14 L BUN 28 H 27 H 23 Creatinine 1.18 1.08 0.96 Glucose 121 H 91 106 H Calcium 9.7 8.6 8.6 04/11/18 04/11/18 04/11/18 04:44 06:03 08:07 Sodium 137 138 139 Potassium 3.4 L 3.4 L 3.7 Chloride 106 109 H 107 Carbon Dioxide 20 L 20 L 25 BUN 24 H 23 25 H Creatinine 0.92 0.91 1.00 Glucose 100 159 H 88 Calcium 8.6 8.5 L 8.8 Liver Function 04/10/18 Range/Units 21:56 Total Bilirubin 0.2 L (0.3-1.0) mg/dL Direct Bilirubin 0.1 (0.0-0.2) mg/dL AST 35 (13-39) Units/L ALT 30 (7-52) Units/L Alkaline Phosphatase 80 (34-104) Units/L Albumin 4.6 (3.5-5.7) g/dL Urine 04/10/18 Range/Units 22:30 Urine Color Yellow (Yellow) Urine Clarity Clear (Clear) Urine pH 5.0 (5.0-8.0) pH Units Ur Specific [place] 1.027 H (1.010-1.025) Urine Protein Trace (Neg-Trace) mg/dL Urine Glucose (UA) Normal (Normal) mg/dL - ABG Interpretation ABG results: ABG ABG pH 7.47 pH Units (7.32-7.45) H 04/11/18 04:11 ABG pCO2 21 mmHg (35-45) L 04/11/18 04:11 ABG pO2 84 mmHg (85-104) L 04/11/18 04:11 ABG O2 Saturation 97 % (95-98) 04/11/18 04:11 PT/INR, D-dimer PT 13.6 Seconds (9.4-12.1) H 04/10/18 22:40 - Impressions Impressions Head CT 04/10/18 21:51 IMPRESSION: No acute intracranial abnormality. Chronic white matter microangiopathic ischemic changes. D/ / Martin Young MD / Martin Young MD Interpreting Provider: Martin Young MD Chest X-Ray 04/10/18 22:40 IMPRESSION: Stable exam without acute focal process. D/ / Martin Young MD / Martin Young MD Interpreting Provider: Martin Young MD Consult Discharge Plan - Plan Referrals: Soledad Carbajal DO [Resident] - 04/13/18 3:00 pm (Residency clinic. Please arrive thirty min early to appointment. Please bring insurance card, ID, and home medications. ) <Hitesh Del Valle - Last Filed: 04/11/18 18:13> Hospitalist Progress Note - Exam Vitals: Temp Pulse Resp BP Pulse Ox 97.7 F 84 16 126/65 97 04/11/18 11:55 04/11/18 11:55 04/11/18 11:55 04/11/18 11:55 04/11/18 11:55 - Assessment and Plan (1) Salicylate poisoning Current Visit: Yes Status: Acute (2) DVT prophylaxis Current Visit: Yes Status: Acute (3) Altered mental status Current Visit: Yes Status: Acute - Time Spent with Patient Total time spent is greater than 50% in coordination of care (as documented) at patient's floor/unit and/or counseling patient: Internal Medicine: Result - Labs CBC & Chem 7: 04/10/18 21:56 04/11/18 12:11 Labs: Short CBC 04/10/18 Range/Units 21:56 WBC 7.2 (4.3-11.1) K/mcL Hgb 15.2 (11.5-15.4) g/dL Hct 44.8 (35.3-44.9) % Plt Count 227 (140-400) K/mcL Neutrophils # 4.9 (1.6-8.9) K/mcL BMP 04/10/18 04/11/18 04/11/18 21:56 00:02 03:32 Sodium 133 L 135 L 136 Potassium 3.7 3.7 3.6 Chloride 102 107 109 H Carbon Dioxide 15 L 17 L 14 L BUN 28 H 27 H 23 Creatinine 1.18 1.08 0.96 Glucose 121 H 91 106 H Calcium 9.7 8.6 8.6 04/11/18 04/11/18 04/11/18 04:44 06:03 08:07 Sodium 137 138 139 Potassium 3.4 L 3.4 L 3.7 Chloride 106 109 H 107 Carbon Dioxide 20 L 20 L 25 BUN 24 H 23 25 H Creatinine 0.92 0.91 1.00 Glucose 100 159 H 88 Calcium 8.6 8.5 L 8.8 04/11/18 04/11/18 09:41 12:11 Sodium 140 140 Potassium 3.6 4.2 Chloride 105 109 H Carbon Dioxide 24 22 L BUN 26 H 29 H Creatinine 1.01 0.97 Glucose 100 99 Calcium 8.8 8.7 Liver Function 04/10/18 Range/Units 21:56 Total Bilirubin 0.2 L (0.3-1.0) mg/dL Direct Bilirubin 0.1 (0.0-0.2) mg/dL AST 35 (13-39) Units/L ALT 30 (7-52) Units/L Alkaline Phosphatase 80 (34-104) Units/L Albumin 4.6 (3.5-5.7) g/dL Urine 04/10/18 Range/Units 22:30 Urine Color Yellow (Yellow) Urine Clarity Clear (Clear) Urine pH 5.0 (5.0-8.0) pH Units Ur Specific [place] 1.027 H (1.010-1.025) Urine Protein Trace (Neg-Trace) mg/dL Urine Glucose (UA) Normal (Normal) mg/dL - ABG Interpretation ABG results: ABG ABG pH 7.47 pH Units (7.32-7.45) H 04/11/18 04:11 ABG pCO2 21 mmHg (35-45) L 04/11/18 04:11 ABG pO2 84 mmHg (85-104) L 04/11/18 04:11 ABG O2 Saturation 97 % (95-98) 04/11/18 04:11 PT/INR, D-dimer PT 13.6 Seconds (9.4-12.1) H 04/10/18 22:40 - Impressions Impressions Head CT 04/10/18 21:51 IMPRESSION: No acute intracranial abnormality. Chronic white matter microangiopathic ischemic changes. D/ / Martin Young MD / Martin Young MD Interpreting Provider: Martin Young MD Chest X-Ray 04/10/18 22:40 IMPRESSION: Stable exam without acute focal process. D/ / Martin Young MD / Martin Young MD Interpreting Provider: Martin Young MD Guidance Ultrasound 04/11/18 00:00 IMPRESSION: 1. Right internal jugular vein temporary dialysis catheter placement as discussed above. D/ / Jamey Ferro MD / Jamey Ferro MD Interpreting Provider: Jamey Ferro MD Insertion Non-Tunneled Catheter 04/11/18 00:00 IMPRESSION: 1. Right internal jugular vein temporary dialysis catheter placement as discussed above. D/ / Jamey Ferro MD / Jamey Ferro MD Interpreting Provider: Jamey Ferro MD - Attending Attestation I examined this patient and my medical decision-making was reviewed with the Resident Physician on 04/11/18. I agree with the documented findings, disposition and treatment plan as described except to the extent set forth below. Ms Liu was admitted earlier today for salicylate poisoning. She has been on bicarbonate drip and will be seen by nephrology for dialysis. Exam alert Comfortable Mucus membranes dry Heart not tachy Agree with assessment and plan as above and in H&P <No Newby - Last Filed: 04/11/18 14:52> (1) Salicylate poisoning Qualifiers: Encounter type: initial encounter Injury intent: accidental or unintentional Qualified Code(s): T39.091A - Poisoning by salicylates, accidental (unintentional), initial encounter (2) Altered mental status Qualifiers: Altered mental status type: unspecified Qualified Code(s): R41.82 - Altered mental status, unspecified <Hitesh Del Valle - Last Filed: 04/11/18 18:13> (1) Salicylate poisoning Qualifiers: Encounter type: initial encounter Injury intent: accidental or unintentional Qualified Code(s): T39.091A - Poisoning by salicylates, accidental (unintentional), initial encounter (3) Altered mental status Qualifiers: Altered mental status type: unspecified Qualified Code(s): R41.82 - Altered mental status, unspecified
--- NOTE | 2018-04-11 10:07 | Nephrology Consult Note ---
Date of Encounter: 04/11/18 Time of Encounter: 10:07 Assessment and Plan (1) Salicylate poisoning Current Visit: Yes Status: Acute Patient presents acutely for salicylate poisoning with neurologic side effects such as visual hallucinations, weakness, tinnitis, disequilibrium, and ataxia. Salicylate level 54.5 at admission. She reported taking 1 to 2 tablets of aspirin 4-5 times a day for the past 4 weeks due to joint stiffness. Poison control was contacted by the ED. She received IV fluids and sodium bicarb in the ED. -Salicylate level 34.8 improved -creatinine WNL -urinalysis is unremarkable -patient does have tangential conversations, however she is cooperative with answering questions and his mentating appropriately Plan: -poison control recommended that despite the improvement in the salicylate level they highly recommend the patient undergo hemodialysis. This was discussed with the patient and she is agreeable. Plan to take patient for hemodialysis today after interventional radiology places temporary hemodialysis catheter. -Recommend monitoring salicylate level Qualifiers: Encounter type: initial encounter Injury intent: accidental or unintentional Qualified Code(s): T39.091A - Poisoning by salicylates, accidental (unintentional), initial encounter (2) Altered mental status Current Visit: Yes Status: Acute Patient presented with altered mental status described as visual hallucinations only. Etiology likely secondary to salicylate toxicity. -see management as above Qualifiers: Altered mental status type: unspecified Qualified Code(s): R41.82 - Altered mental status, unspecified (3) Metabolic acidosis due to salicylate Current Visit: Yes Status: Acute Patient has a metabolic acidosis due to salicylate poisoning. Anion gap 16 -see management as above History of Present Illness - Reason for Consult Consult date: 04/11/18 (Salicylate toxicity) Requesting physician: Cheryl Carvalho - Chief Complaint Hallucinations - History of Present Illness Ms. Liu is a 67 year old female with a history of hypertension, migraines, depression, and vertebral artery insufficiency who presented to [facility] complaining of hallucinations. Nephrology was consulted due to salicylate toxicity. Upon examination the patient she reported that she been taking 2 tablets of aspirin 4 to 5 times a day for 4 weeks due to joint stiffness. She believes that her hallucinations have been going on for a couple days but she is unsure. She describes them as visual hallucinations. She denies auditory hallucinations. She decided to go to the hospital when she realized that her hallucinations were not real and that she needed to get help. She admits to increasing weakness, difficulty walking due to which she describes as disequilibrium, ringing in ears. She denies any fever, chills, headache, chest pain, shortness of breath, abdominal pain, nausea, vomiting, melena, he matochezia, difficulty urinating. She is a current smoker, drinks one bottle of tequila per month, and denies drug use. Past Med Surg Social Fam HX - Past Medical History Attestation: Yes The following information was validated with the patient. Source: patient Medical history: hypertension Psychiatric history: depression - Past Surgical History Surgical History: other Additional surgical history: neck et back sx. left eye lens - Social History Smoking Status: Current every day smoker Packs per day: 1/2 Smokeless Tobacco Status: No Alcohol use: occasionally Drug use: none - Family History Mother Hx Family Cardiac Disorders: Yes (DE) Hx Family Respiratory Disorders: No Hx Family Cancer: No Hx Family GI Disorders: No Hx Family Genitourinary Disorders: No Hx Family Endocrine Disorder: No Hx Family Musculoskeletal Disorders: No Hx Family Neuromuscular Disorders: No Hx Family Neurologic Disorders: No Hx Family HEENT Disorders: No Hx Family Autoimmune Disorders: No Hx Family Reproductive Disorders: No Hx Family Psychosocial Disorders: No Hx Family Medical Disorders: No Father Hx Family Neurologic Disorders: Yes (Parkinsons) Medications and Allergies DiphenhydraMINE [Benadryl] 25 mg PO TID PRN 04/11/18 [History] Allergy/AdvReac Type Severity Reaction Status Date / Time Penicillins Allergy Hives Verified 04/11/18 05:43 Review of Systems Constitutional: weakness, no anorexia, no chills, no fatigue, no headache(s) Ears: bilateral: tinnitus Nose, mouth and throat: disequilibrium, no abnormal hearing, no headache(s) Cardiovascular: no chest pain, no edema, no palpitations Respiratory: no cough, no dyspnea, no wheezing Gastrointestinal: no abdominal pain, no hematochezia, no melena, no nausea, no vomiting Genitourinary Female: no difficulty urinating, no dysuria Musculoskeletal: arthralgias Integumentary: no erythema, no pruritus, no rash Neurological: abnormal gait, disequilibrium, lack of coordination, weakness, other visual disturbances (Hallucinations), no loss of vision, no syncope Psychiatric: hallucinations, visual hallucinations, no auditory hallucinations Hematologic/Lymphatic: no easy bleeding Exam - Vital Signs Vital signs: Initial Vital Signs Temp Pulse Resp BP Pulse Ox 98.2 F 104 17 122/72 97 04/10/18 21:16 04/10/18 21:16 04/10/18 21:16 04/10/18 21:16 04/10/18 21:16 Vital Signs - Last 8 Hours Temp Pulse Resp BP Pulse Ox 04/11/18 07:20 97.9 F 79 16 105/62 99 04/11/18 03:47 97.7 F 81 16 125/60 100 Intake and Output 04/10/18 04/11/18 04/11/18 23:59 07:59 15:59 Intake Total 500 / 500 90 / 90 Output Total 250 / 250 Balance 500 / 500 -250 / -250 90 / 90 Intake: IV Fluids 500 / 500 0.9 % Sodium Chloride 500 ML @ 500 / 500 999 mls/hr IVC .Q31M ONE Rx#: [id number] Oral 90 / 90 Output: Urine 250 / 250 Other: Meal Breakfast Percent of Meal Consumed 70% Weight 56.608 kg 57 kg Blood Glucose* 100 Patient Weight 04/11/18 23:59 Weight 57 kg - General Appearance General appearance: well-developed, well-nourished, appears started age EENT: mucous membranes dry Neck: no JVD, supple Respiratory: clear Cardiology: no murmurs, no rub, no edema, regular rate, regular rhythm Gastrointestinal: normoactive bowel sounds, no tenderness, no guarding Integumentary: no rash, warm and dry Neurologic: no focal deficit Musculoskeletal: no erythema, no cyanosis, no clubbing Psychiatric: cooperative Results - Lab Results 04/10/18 21:56 04/11/18 12:11 Most recent lab results ABG pH 7.47 pH Units (7.32-7.45) H 04/11/18 04:11 ABG pCO2 21 mmHg (35-45) L 04/11/18 04:11 ABG pO2 84 mmHg (85-104) L 04/11/18 04:11 ABG HCO3 15 mEq/L (21-27) L 04/11/18 04:11 ABG O2 Saturation 97 % (95-98) 04/11/18 04:11 Calcium 8.8 mg/dL (8.6-10.3) 04/11/18 08:07 Magnesium 2.1 mg/dL (1.6-2.6) 04/10/18 21:56 Consult Discharge Plan - Plan Referrals: NONE,PCP [Primary Care Provider] -
[2018-04-11 10:13] LABS: BUN/Creatinine Ratio 26 (6-26); Blood Urea Nitrogen 26 mg/dL (8-23); Calcium 8.8 mg/dL (8.6-10.3); Carbon Dioxide 24 mEq/L (23-29); Chloride 105 mEq/L (98-107); Glucose 100 mg/dL (70-105); Osmolality,Calculated 295 (280-300); Potassium 3.6 mEq/L (3.5-5.1); Salicylate 40.5 mg/dL (15.0-30.0); Sodium 140 mEq/L (136-145); eGFR For Non-African Americans 54 (> 60)
[2018-04-11] MEDS ORDERED: 0.9 % Sodium Chloride 250 ML IVC PRN (11:46)
[2018-04-11 12:49] LABS: BUN/Creatinine Ratio 30 (6-26); Blood Urea Nitrogen 29 mg/dL (8-23); Calcium 8.7 mg/dL (8.6-10.3); Carbon Dioxide 22 mEq/L (23-29); Chloride 109 mEq/L (98-107); Glucose 99 mg/dL (70-105); Osmolality,Calculated 296 (280-300); Potassium 4.2 mEq/L (3.5-5.1); Salicylate 34.8 mg/dL (15.0-30.0); Sodium 140 mEq/L (136-145); eGFR For Non-African Americans 57 (> 60)
[2018-04-11] MEDS ORDERED: Heparin 1,000 UNITS/500 mL 500 ML ONE (12:55)
[2018-04-11] MEDS ORDERED: *HR* Heparin 10,000 UNIT/10 ML VIAL IV PRN (13:01)
[2018-04-11] MEDS ORDERED: *HR* Heparin 5,000 UNIT/ML VIAL ONE ×2 (14:43→14:50)
--- NOTE | 2018-04-11 14:46 | IR Procedure Note ---
Date of procedure: 04/11/18 Consent Obtained: Written consent Timeout: Correct patient and procedure verified, Time out performed, Skin prep completed Local anesthetic: Lidocaine 1% Indications: Salicylate poisoning Procedure Performed: Temp dialysis catheter placement Was there an publisher assistant present: No Results/Findings: RIJ 15.5 f temp dialysis catheter placement Estimated blood loss (cc): 0 Complications: None; Tolerated procedure well Post Procedure Treatment Plan: Monitor on floor Specimen: none
--- NOTE | 2018-04-11 15:32 | Electrocardiograph Report ---
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
[2018-04-11 18:15] LABS: Hepatitis B Surface Antigen Nonreactive (Nonreactive)
[2018-04-11 18:26] LABS: Hepatitis B Surface Antibody 20272.47 mIU/mL
[2018-04-11] MEDS ORDERED: 0.9 % Sodium Chloride 1,000 ML ONE (19:53)
[2018-04-11 22:01] LABS: BUN/Creatinine Ratio 12 (6-26); Blood Urea Nitrogen 6 mg/dL (8-23); Calcium 9.3 mg/dL (8.6-10.3); Carbon Dioxide 30 mEq/L (23-29); Chloride 102 mEq/L (98-107); Glucose 126 mg/dL (70-105); Osmolality,Calculated 287 (280-300); Potassium 3.3 mEq/L (3.5-5.1); Sodium 139 mEq/L (136-145); eGFR For Non-African Americans > 60 (> 60)
[2018-04-11 22:52] LABS: Salicylate 8.6 mg/dL (15.0-30.0)
[2018-04-12] MEDS: Acetaminophen 325 MG TABLET PO PRN ×2 (03:10→09:40)
[2018-04-12] MEDS ORDERED: Nicotine 14 MG PATCH.TD24 TD SCH (04:00)
[2018-04-12 05:42] LABS: Basophils # 0.1 K/mcL (0.0-0.2); Eosinophils # 0.1 K/mcL (0.0-0.6); Eosinophils % 1.8 %; Hematocrit 38.4 % (35.3-44.9); Immature Granulocytes % 0.3 % (0-4); Lymphocytes # 1.7 K/mcL (0.6-4.6); Lymphocytes % 23.4 %; Mean Corpuscular HGB Conc 33.3 g/dL (31.6-35.5); Mean Corpuscular Volume 101.9 fL (83.0-100.0); Mean Platelet Volume 9.5 fL (9.4-12.4); Monocytes # 0.6 K/mcL (0.0-1.3); Monocytes % 8.3 %; Neutrophils # 4.7 K/mcL (1.6-8.9); Platelet Count 175 K/mcL (140-400); Red Blood Count 3.77 M/mcL (3.82-4.97); Segmented Neutrophils % 65.2 %
[2018-04-12 05:46] LABS: Hemoglobin 12.8 g/dL (11.5-15.4)
[2018-04-12 05:57] LABS: VBG HCO3 28 mEq/L (21-27); VBG PCO2 45 mmHg (41-51); VBG PO2 180 mmHg (25-50)
[2018-04-12] MEDS: *HR* Heparin 5,000 UNIT/ML VIAL SQ SCH (06:21)
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
[2018-04-12 09:47] LABS: Bilirubin,Urine Negative (Negative); Blood,Urine Negative (Negative); Color,Urine Yellow (Yellow); Glucose,Urine (UA) Normal (Normal); Ketones,Urine Negative (Negative); Leukocyte Esterase,Urine Large (Negative); Nitrite,Urine Negative (Negative); Protein,Urine 30 mg/dL (Neg-Trace); Specific Gravity,Urine 1.022 (1.010-1.025); Urobilinogen,Urine Normal (Normal)
[2018-04-12 09:50] LABS: Bacteria,Urine None Seen per hpf (None-Few); Hyaline Casts,Urine None Seen per lpf (None-Few); Squamous Epithelial Cell,Urine Moderate per lpf (None-Few); WBC,Urine 30-50 per hpf (0-3)
[2018-04-12 09:53] LABS: Clarity,Urine Slightly Hazy (Clear)
[2018-04-12 10:14] LABS: RBC,Urine 0-3 per hpf (0-3)
[2018-04-12 10:40] LABS: BUN/Creatinine Ratio 19 (6-26); Blood Urea Nitrogen 14 mg/dL (8-23); Calcium 8.8 mg/dL (8.6-10.3); Carbon Dioxide 29 mEq/L (23-29); Chloride 103 mEq/L (98-107); Glucose 92 mg/dL (70-105); Osmolality,Calculated 288 (280-300); Potassium 3.5 mEq/L (3.5-5.1); Sodium 139 mEq/L (136-145); eGFR For Non-African Americans > 60 (> 60)
[2018-04-12 10:47] VITALS: BP 156/73
--- NOTE | 2018-04-12 10:52 | Nephrology Progress Note ---
Date of Encounter: 04/12/18 Time of Encounter: 09:58 - Assessment and Plan (1) Salicylate poisoning Current Visit: Yes Status: Resolved Patient presents acutely for salicylate poisoning with neurologic side effects such as visual hallucinations, weakness, tinnitis, disequilibrium, and ataxia. Salicylate level 54.5 at admission. She reported taking 1 to 2 tablets of aspirin 4-5 times a day for the past 4 weeks due to joint stiffness. Poison control was contacted by the ED. She received IV fluids and sodium bicarb in the ED. -Salicylate level 5.2 improved -I&O: 610/850 -repeat urinalysis demonstrates leukocyte esterase however, she is asymptomatic with no dysuria -Today she is alert and oriented times 3 and stated that the visual hallucinatio ns have resolved. Plan: -patient underwent hemodialysis yesterday in her salicylate level has markedly decreased from HD. No need for HD anymore. -She has appropriate urine output -will await repeat BMP to evaluate the electrolytes and creatinine -will consult interventional radiology to remove temporary hemodialysis catheter Qualifiers: Encounter type: initial encounter Injury intent: accidental or unintentional Qualified Code(s): T39.091A - Poisoning by salicylates, accidental (unintentional), initial encounter (2) Altered mental status Current Visit: Yes Status: Acute Resolved. Patient presented with altered mental status described as visual hallucinations only. Etiology likely secondary to salicylate toxicity. -see management as above Qualifiers: Altered mental status type: unspecified Qualified Code(s): R41.82 - Altered mental status, unspecified (3) Metabolic acidosis due to salicylate Current Visit: Yes Status: Resolved Patient has a metabolic acidosis due to salicylate poisoning. Anion gap 16 -see management as above Subjective Principal diagnosis: Salicylate toxicity Interval history: Patient seen and examined at bedside. She is alert and oriented times 3. She stated that the visual hallucinations have stopped. She denies auditory hallucinations. She denies fever, chills, change in vision, headache, nausea, vomiting, abdominal pain, change in urination. She stated that she still has a little feeling of off-balance but is able to walk to the bathroom on her own. She has no complaints at this time. Objective - Vital Signs Vital signs: Vital Signs Temp Pulse Resp BP Pulse Ox 04/12/18 06:39 98.0 F 77 16 146/73 97 04/12/18 04:12 97.6 F 82 14 152/84 98 04/11/18 23:31 97.5 F L 84 16 152/80 96 04/11/18 21:00 96 04/11/18 20:16 98.4 F 18 155/72 04/11/18 20:00 147/74 04/11/18 19:45 137/43 04/11/18 19:30 133/68 04/11/18 19:15 133/68 04/11/18 19:00 146/87 04/11/18 18:45 144/82 04/11/18 18:30 151/65 04/11/18 18:15 135/81 04/11/18 18:00 142/72 04/11/18 17:45 139/70 04/11/18 17:30 120/58 04/11/18 17:15 132/68 04/11/18 17:00 138/69 04/11/18 16:45 141/70 04/11/18 16:30 99 F 16 139/70 04/11/18 11:55 97.7 F 84 16 126/65 97 Intake and Output 04/11/18 04/12/18 04/12/18 23:59 07:59 15:59 Intake Total 600 / 600 360 / 360 Output Total 600 / 600 Balance 0 / 0 360 / 360 Intake: Oral 360 / 360 Intake, Rinseback and Flushes 600 / 600 Output: Total Dialysis (HD) Output 600 / 600 Other: Meal Breakfast Percent of Meal Consumed 100% Weight 58.7 kg Hemodialysis Net Fluid Removed 0 (mL) Patient Weight 04/12/18 23:59 Weight 58.7 kg - General Appearance General appearance: Present: well-developed, well-nourished, appears started age. Absent: anxious EENT: Present: mucous membranes moist. Absent: scleral icterus Neck: Present: no JVD, supple Respiratory: Present: clear Cardiology: Present: no gallops, no edema, regular rate, regular rhythm Dialysis Vascular Access: Venous Catheter (temporaryhemodialysis catheter on right IJ) Gastrointestinal: Present: normoactive bowel sounds, no tenderness, no guarding, no organomegaly Integumentary: Present: no rash, warm and dry Neurologic: Present: no focal deficit, alert and oriented x3 Musculoskeletal: Present: no erythema, no cyanosis, no clubbing Psychiatric: Present: mood/affect appropriate, cooperative - Lab 04/12/18 05:32 04/11/18 21:17 Most recent lab results ABG pH 7.47 pH Units (7.32-7.45) H 04/11/18 04:11 ABG pCO2 21 mmHg (35-45) L 04/11/18 04:11 ABG pO2 84 mmHg (85-104) L 04/11/18 04:11 ABG HCO3 15 mEq/L (21-27) L 04/11/18 04:11 ABG O2 Saturation 97 % (95-98) 04/11/18 04:11 Calcium 9.3 mg/dL (8.6-10.3) 04/11/18 21:17 Magnesium 2.1 mg/dL (1.6-2.6) 04/10/18 21:56 Consult Discharge Plan - Plan Referrals: Soledad Carbajal DO [Resident] - 04/13/18 3:00 pm (Residency clinic. Please arrive thirty min early to appointment. Please bring insurance card, ID, and home medications. )
--- NOTE | 2018-04-12 10:57 | Discharge Summary ---
<No Newby - Last Filed: 04/12/18 14:23> - NOTES TO OUTPATIENT PROVIDER Notes to Outpatient Provider: Pt needs: - to establish with outpt mental health provider for PTSD management, wanted Ativan prn at d/c but discussed with her I was not comfortable Rxing that. - Was on tramadol before for chronic neck/back pain s/p old injury, needs pain management/physical therapy. Emphasized need to avoid ASA completely. - discuss allergy sx control - had been taking benadryl BID, I discussed claritin with her, gave her a dose while in the hospital, rose she continue with second generation anti-histamine Orders not resulted at time of discharge: Pending orders 04/10/18 23:56 pH,Body Fluid [BF] Stat Date of Encounter: 04/12/18 Time of Encounter: 10:48 - Discharge Diagnosis (1) Salicylate poisoning Priority: Primary Status: Resolved Assessment and Plan: Pt's initial level was 54, after dialysis, level came down to <2.5 Spoke with pt and cautioned her to avoid all medications containing ASA from now on Pt verbalized understanding Qualifiers: Encounter type: initial encounter Injury intent: accidental or unintentional Qualified Code(s): T39.091A - Poisoning by salicylates, accidental (unintentional), initial encounter (2) Altered mental status Priority: Secondary Status: Resolved Assessment and Plan: Toxicity induced delerium Resolved with resolution of salicylate toxicity Qualifiers: Altered mental status type: unspecified Qualified Code(s): R41.82 - Altered mental status, unspecified (3) Hypertension Priority: Secondary Status: Resolved Assessment and Plan: resolved Qualifiers: Hypertension type: unspecified Qualified Code(s): I10 - Essential (primary) hypertension (4) Metabolic acidosis due to salicylate Priority: Secondary Status: Resolved Assessment and Plan: Resolved (5) DVT prophylaxis Priority: Secondary Status: Resolved Assessment and Plan: resolved Hospital course: Ms. Liu is a 67 year old female that presented with visual hallucinations and was admitted for salicylate poisoning with a level >54. She was initially started on a bicarb drip with Q2 salicylate levels, BNPs and Urine pHs. Her level only came down by 10 overnight, so poison control recommended that she be dialyzed. Pt received a temporary dialysis catheter, was dialyzed, and her salicylate level came down to <2.5. Pt was strongly cautioned to avoid any medication containing ASA in the future. She was recommended to establish and follow-up with a primary care physician and given a referral to the residency clinic. Additionally, she was still complaining of neck/back pain which initially led her to take chronic ASA dosing, so she was switched to tylenol while in the hospital and encouraged to mention physical therapy and pain management during her outpatient PCP appointment. PT's temporary dialysis catheter was removed, she was observed for several hours, and felt safe to be discharged. Pt was given an opportunity to ask questions and all of her concerns were addressed. Discharge discussed with: patient Time spent discussing smoking cessation with patient: more than 10 minutes - Time Spent with Patient Total time spent providing and/or coordinating discharge services: Less than 30 minutes - Discharge Medications Prescriptions: RX: Acetaminophen [Tylenol] 650 mg PO Q6HR PRN #120 tablet PRN Reason: Pain Loratadine [Claritin] 10 mg PO DAILY #30 tablet RX: Nicotine Patch [Nicoderm] 14 mg TD DAILY@0400 #30 patch.td24 Home Medications: Loratadine [Claritin] 10 mg PO DAILY #30 tablet 04/12/18 [Rx] RX: Acetaminophen [Tylenol] 650 mg PO Q6HR PRN #120 tablet 04/12/18 [Rx] RX: Nicotine Patch [Nicoderm] 14 mg TD DAILY@0400 #30 patch.td24 04/12/18 [Rx] Allergies/Adverse Reactions: Allergy/AdvReac Type Severity Reaction Status Date / Time Penicillins Allergy Hives Verified 04/11/18 05:43 Date of admission: 04/11/18 01:55 Primary care physician: PCP NONE Consults: 04/10/18 23:09 Consult to Nephrology [CONS] Stat Consulting Provider: Kidney Doretha/ALLISON/MAYA/JENNIFER Reason for Consult: SALICYLATE TOXICITY Call Completed: Yes 04/11/18 11:41 Consult to Interventional Radiology [CONS] Routine Consulting Provider: Radiology Interventional Cols Reason for Consult: Please assess for placement of a temporary HD catheter. Call Completed: Yes 04/11/18 12:00 Consult to Dialysis [CONS] ONCE 04/12/18 09:57 Consult to Interventional Radiology [CONS] Routine Consulting Provider: Radiology Interventional Cols Reason for Consult: remove temp line Call Completed: Yes - Constitutional Vitals: Temp Pulse Resp BP Pulse Ox 98.5 F 77 16 156/73 98 04/12/18 10:46 04/12/18 10:46 04/12/18 10:46 04/12/18 10:46 04/12/18 10:46 Exam: General:. Kyphotic posture, seems relatively at ease. A&O x 3, much improved from yesterday. Head: atraumatic, normocephalic. ENT: No conjunctival injection, no scleral icterus. PERRLA. EOMI. Oropharynx non- erythematous. mucous membranes moist. Neuro: No focal deficits, no speech deficit, no facial droop. Pulm: Lungs CTAB A/P. NO wheezes/rales/ronchi. Cardio: RRR no m/r/g. Chest not tender to palpation. Abd: Soft, non-distended. Normoactive bowel sounds. Non-tender to palpation. No guarding. Non rigid. Skin: warm, dry, intact. No rashes. Psych: Cooperative with exam. No longer endorsing visual hallucinations, still not endorsing auditory hallucinations. - Patient Status Disposition: Home, Self-Care Condition: Good Overall status at discharge: patient is back to baseline - Discharge Instructions Instructions: Chronic Hypertension (DC) Follow Up With: Soledad Carbajal DO [Resident] - 04/13/18 3:00 pm (Residency clinic. Please arrive thirty min early to appointment. Please bring insurance card, ID, and home medications. ) - Diet and Activity Activity: increase activity as tolerated Diet: advance to your usual diet <Hitesh Del Valle - Last Filed: 04/12/18 18:31> Orders not resulted at time of discharge: Pending orders 04/10/18 23:56 pH,Body Fluid [BF] Stat - Discharge Diagnosis (1) Salicylate poisoning Status: Resolved Qualifiers: Encounter type: subsequent encounter Injury intent: accidental or unintentional Qualified Code(s): T39.091D - Poisoning by salicylates, accidental (unintentional), subsequent encounter (2) DVT prophylaxis Status: Resolved (3) Altered mental status Status: Resolved Qualifiers: Altered mental status type: unspecified Qualified Code(s): R41.82 - Altered mental status, unspecified (4) Hypertension Status: Resolved Qualifiers: Hypertension type: essential hypertension Qualified Code(s): I10 - Essential (primary) hypertension (5) Delirium due to known physiological condition Priority: Secondary Status: Resolved (6) Metabolic acidosis due to salicylate Status: Resolved Hospital course: Ms. Liu is a 67 year old female - Time Spent with Patient Total time spent providing and/or coordinating discharge services: Date of admission: 04/11/18 01:55 Primary care physician: PCP NONE Consults: 04/10/18 23:09 Consult to Nephrology [CONS] Stat Consulting Provider: Kidney Doretha/ALLISON/MAYA/JENNIFER Reason for Consult: SALICYLATE TOXICITY Call Completed: Yes 04/11/18 11:41 Consult to Interventional Radiology [CONS] Routine Consulting Provider: Radiology Interventional Cols Reason for Consult: Please assess for placement of a temporary HD catheter. Call Completed: Yes 04/11/18 12:00 Consult to Dialysis [CONS] ONCE 04/12/18 09:57 Consult to Interventional Radiology [CONS] Routine Consulting Provider: Radiology Interventional Cols Reason for Consult: remove temp line Call Completed: Yes - Constitutional Vitals: Temp Pulse Resp BP Pulse Ox 98.5 F 77 16 156/73 98 04/12/18 10:46 04/12/18 10:46 04/12/18 10:46 04/12/18 10:46 04/12/18 10:46 - Attending Attestation I examined this patient and my medical decision-making was reviewed with the Resident Physician on 04/12/18. I agree with the documented findings, disposition and treatment plan as described except to the extent set forth below. Ms Liu has been admitted for acute salicylate toxicity. She is now at baseline. She is afebrile and ready for discharge home. Exam alert Comfortable Mucus membranes dry Heart reg No wheeze Abd soft Plan D/C home today. Addendum entered and electronically signed by Hitesh Del Valle DO 04/12/18 18:33: Additional diagnoses: Tobacco abuse. D/C time 38min
[2018-04-13] MEDS ORDERED: Loratadine 10 MG TABLET PO ONE (10:02)
--- NOTE | 2018-04-14 21:52 | Electrocardiograph Report ---
[address] [address] Test Date: 2018-04-10 Pat Name: Nieves Liu Department: [id number] Room: 3B Gender: F [employer] Activities Coordinator: : 1950 Requested By: Cheryl Carvalho Order Number: [id number] Reading MD: Alhaji Cochran Measurements Intervals [place] Rate: 96 P: 78 W[place]: 148 QRS: 83 QRSD: 136 T: 56 QT: 390 QTc: 493 Interpretive Statements Sinus rhythm Right bundle branch block Electronically Signed On 04-14-2018 21:51:26 EDT by Alhaji Cochran
== END 2018-04-12 14:34 | disposition home or self-care (01) | DRG 918 ==
LOC: EMEROOARM 21:11 → 3BNU 21:11 → SUATTDRO 04-11 01:55
PROVIDERS: ADMIT Internal Medicine; ATTEND Internal Medicine